=== PATIENT | female | born 2000 | race Caucasian/White ===

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

== ENCOUNTER 2019-04-13 22:49 | Emergency (ER) | payer OTHER ==
[~2019-04-13] VITALS: Ht 165.1 cm; Wt 60.0 kg
[2019-04-13 22:51] VITALS: BP 138/75
[2019-04-13] MEDS ORDERED: SERT25TA3 PO (23:13)
[2019-04-13] MEDS ORDERED: FLUO20CA19 PO (23:13)
--- NOTE | 2019-04-13 23:13 | NUR ---
PT RECENTLY TREATED FOR SINUS INFECTION AND TREATED WITH ABX, NOW C/O +COUGH AND SINUS PRESSURE LAST FEW DAYS. PT SITTING UP ON GURNEY, CALL LIGHT WITHIN REACH, AWAITING CXY
== END 2019-04-13 23:50 ==
LOC: ED 23:44
DX: J01.00 Acute maxillary sinusitis, unspecified (principal); B34.9 Viral infection, unspecified
CPT/HCPCS: 71046; 99283

== ENCOUNTER 2019-12-03 20:30 | Emergency (ER) | payer OTHER ==
[~2019-12-03] VITALS: Ht 165.1 cm; Wt 74.7 kg
[~2019-12-03 20:30] MED LIST: FLUO20CA19 PO; SERT25TA3 PO
--- NOTE | 2019-12-03 20:52 | NUR ---
TASK RN: FIRST CONTACT WITH PT. RESTING IN [facility], NAD NOTED. REPORTS LUQ/RUQ ABD "CRAMPING" X SEVERAL DAYS. CURRENTLY , APPROX 7 WEEKS LMP 10/12. . DENIES VAGINAL DC OR BLEEDING, N/V, DYSURIA. AMBULATED STEADILY TO BATHROOM TO PROVIDE UA. REPORT TO PRIMARY RNJACKELYN.
[2019-12-03 21:34] LABS: BASOPHILS # (AUTO) 0.03 x10^3/uL (0-0.3); BASOPHILS % (AUTO) 0 % (0-1); EOSINOPHILS # (AUTO) 0.07 x10^3/uL (0-0.8); EOSINOPHILS % (AUTO) 1 % (1-7); LYMPHOCYTES # (AUTO) 2.47 x10^3/uL (1-6.1); LYMPHOCYTES % (AUTO) 23 % (22-44); MD NO; MEAN CORPUSCULAR HEMOGLOBIN 28.6 pg (27.0-34.8); MEAN CORPUSCULAR HGB CONC 33.2 g/dL (32.4-35.8); MEAN CORPUSCULAR VOLUME 86.2 fL (80-100); MEAN PLATELET VOLUME 10.6 fL (7.4-10.4); MONOCYTES # (AUTO) 0.89 x10^3/uL (0-1.4); MONOCYTES % (AUTO) 8 % (2-9); NEUTROPHILS # (AUTO) 7.44 x10^3/uL (1.8-8.0); NEUTROPHILS % (AUTO) 68 % (42-75); PLATELET COUNT 213 x10^3/uL (130-400)
[2019-12-03 21:46] LABS: ALANINE AMINOTRANSFERASE 18 U/L (12-78); ALBUMIN 3.7 g/dL (3.4-5.0); ANION GAP 7 mmol/L (5-15); CALCIUM 9.3 mg/dL (8.5-10.1); CHLORIDE 107 mmol/L (98-107); CREATININE 0.72 mg/dL (0.55-1.02)
[2019-12-03 21:53] LABS: MICROSCOPIC NOT IND
[2019-12-03 22:04] LABS: ALKALINE PHOSPHATASE 65 U/L (45-117); BILIRUBIN,TOTAL 0.2 mg/dL (0.2-1.0); TOTAL PROTEIN 7.4 g/dL (6.4-8.2)
[2019-12-03 23:02] VITALS: BP 105/59
== END 2019-12-03 23:27 | disposition home or self-care (01) ==
LOC: ED 21:19
DX: O26.891 Other specified pregnancy related conditions, first trimester (principal); R10.11 Right upper quadrant pain; R10.32 Left lower quadrant pain; R11.0 Nausea; Z3A.01 Less than 8 weeks gestation of pregnancy
CPT/HCPCS: 36415; 76705; 76801; 80053; 81003; 84702; 85025; 99285

== ENCOUNTER 2020-03-11 22:16 | Outpatient (CLI) | payer OTHER ==
[~2020-03-11] VITALS: Ht 165.1 cm; Wt 80.9 kg
[2020-03-11 22:27] VITALS: BP 110/68
[2020-03-11 22:35] LABS: MICROSCOPIC NOT IND
== END 2020-03-11 23:00 | disposition home or self-care (01) ==
LOC: LDOP 22:16
PROVIDERS: ATTEND Obstetrics & Gynecology
DX: O36.8120 Decreased fetal movements, second trimester, not applicable or unspecified (principal); Z3A.21 21 weeks gestation of pregnancy
CPT/HCPCS: 81003; 87086; 99211; G0463

== ENCOUNTER 2020-04-12 17:30 | Outpatient (CLI) | payer OTHER ==
[~2020-04-12] VITALS: Ht 165.1 cm; Wt 98.0 kg
[2020-04-12 17:41] VITALS: BP 104/58
[2020-04-12] MEDS ORDERED: FLU VACC QS2020-21(6MOS UP)/PF 60MCG/0.5 ML SYR IM ONE (18:00)
[2020-04-12 18:38] LABS: MICROSCOPIC NOT IND
== END 2020-04-12 19:46 | disposition home or self-care (01) ==
LOC: LDOP 17:30
PROVIDERS: ATTEND Obstetrics & Gynecology
DX: O98.512 Other viral diseases complicating pregnancy, second trimester (principal); O26.892 Other specified pregnancy related conditions, second trimester; M54.9 Dorsalgia, unspecified; Z3A.26 26 weeks gestation of pregnancy
CPT/HCPCS: 81003; 87635; 99211; G0463

== ENCOUNTER 2020-06-01 10:49 | Outpatient (CLI) | payer OTHER ==
[~2020-06-01] VITALS: Ht 165.1 cm; Wt 91.4 kg
[2020-06-01 11:10] VITALS: BP 119/67
== END 2020-06-01 12:00 | disposition home or self-care (01) ==
LOC: LDOP 10:49
PROVIDERS: ATTEND Obstetrics & Gynecology
DX: O26.893 Other specified pregnancy related conditions, third trimester (principal); R42 Dizziness and giddiness; Z3A.33 33 weeks gestation of pregnancy
CPT/HCPCS: 59025

== ENCOUNTER 2020-06-04 18:03 | Outpatient (CLI) | payer OTHER ==
[2020-06-04 18:42] LABS: MICROSCOPIC NOT IND
[2020-06-04 18:54] LABS: CREATININE,URINE RANDOM 88.4 mg/dL
[2020-06-04] MEDS ORDERED: D5%-LACTATED RINGERS 1,000 ML IV SCH (19:00)
[2020-06-04] MEDS ORDERED: ONDANSETRON ODT 4 MG PO ONE (19:00)
[2020-06-04] MEDS ORDERED: PLEASE ENTER HEIGHT AND WEIGHT MC SCH (19:00)
[2020-06-04] MEDS ORDERED: BUTALB/APAP/CAFFEINE 50MG/325MG/40MG PO ONE (19:00)
[2020-06-04 19:15] LABS: ALANINE AMINOTRANSFERASE 24 U/L (12-78); ALBUMIN 2.8 g/dL (3.4-5.0); ANION GAP 2 mmol/L (5-15); CALCIUM 8.9 mg/dL (8.5-10.1); CHLORIDE 110 mmol/L (98-107); CREATININE 0.59 mg/dL (0.55-1.02)
[2020-06-04 19:17] LABS: ALKALINE PHOSPHATASE 124 U/L (45-117); BILIRUBIN,TOTAL 0.2 mg/dL (0.2-1.0); TOTAL PROTEIN 6.9 g/dL (6.4-8.2)
[2020-06-04 19:26] LABS: BASOPHILS % (AUTO) 0 % (0-1); EOSINOPHILS % (AUTO) 1 % (1-7); LYMPHOCYTES % (AUTO) 18 % (22-44); MEAN CORPUSCULAR HEMOGLOBIN 26.8 pg (27.0-34.8); MEAN CORPUSCULAR HGB CONC 33.7 g/dL (32.4-35.8); MEAN PLATELET VOLUME 9.9 fL (7.4-10.4); MONOCYTES % (AUTO) 10 % (2-9); NEUTROPHILS % (AUTO) 71 % (42-75); PLATELET COUNT 203 x10^3/uL (130-400); RED BLOOD COUNT 4.38 x10^6/uL (3.82-5.3); RED CELL DISTRIBUTION WIDTH 13.4 % (9.6-15.2)
[2020-06-04 19:27] LABS: MD NO
[2020-06-04] MEDS ORDERED: BUTALB/APAP/CAFFEINE 50MG/325MG/40MG ONE (19:33)
[2020-06-04] MEDS ORDERED: BUTA-177 PO (19:53)
== END 2020-06-04 20:58 | disposition home or self-care (01) ==
LOC: LDOP 18:03
PROVIDERS: ATTEND Obstetrics & Gynecology
DX: O26.893 Other specified pregnancy related conditions, third trimester (principal); R42 Dizziness and giddiness; R51.9 Headache, unspecified; R10.13 Epigastric pain; Z3A.33 33 weeks gestation of pregnancy
CPT/HCPCS: 36415; 59025; 80053; 81003; 82570; 83690; 84156; 84550; 85025; 87086; 96360; J7121; 96361

== ENCOUNTER 2020-07-16 13:59 | Inpatient (IN) | payer OTHER ==
[~2020-07-16] VITALS: Ht 165.1 cm; Wt 100.0 kg
[~2020-07-16 13:59] MED LIST changes: +BUTA-177 PO; +SERT-331 PO; -SERT25TA3 PO
[2020-07-16 22:51] VITALS: BP 122/64
[2020-07-16] MEDS ORDERED: NEWBORN KIT ONE (22:58)
[2020-07-16] MEDS ORDERED: D5%-LACTATED RINGERS 1,000 ML IV SCH (23:00)
[2020-07-16] MEDS ORDERED: FENTANYL PF 100 MCG/2ML IV PRN (23:00)
[2020-07-16] MEDS ORDERED: CALCIUM CARBONATE 500 MG TAB.CHEW PO PRN (23:00)
[2020-07-16] MEDS ORDERED: OXYTOCIN 30U/ 0.9% NaCL 500ML 500 ML IV ONE (23:00)
[2020-07-16] MEDS ORDERED: ONDANSETRON 2MG/ML, 2ML IVPush PRN (23:00)
[2020-07-16] MEDS ORDERED: TERBUTALINE 1 MG/ML, 1ML SQ PRN (23:00)
[2020-07-16] MEDS ORDERED: OXYTOCIN 30U/ 0.9% NaCL 500ML 500 ML IV PRN (23:00)
[2020-07-16] MEDS ORDERED: TERBUTALINE 1 MG/ML, 1ML IVPush PRN (23:00)
[2020-07-16] MEDS ORDERED: FENTANYL PF 100 MCG/2ML IVPush PRN (23:00)
[2020-07-16] MEDS ORDERED: MISOPROSTOL 25 MCG TABLET ONE (23:05)
[2020-07-16 23:12] LABS: BASOPHILS % (AUTO) 0 % (0-1); EOSINOPHILS % (AUTO) 1 % (1-7); LYMPHOCYTES % (AUTO) 17 % (22-44); MEAN CORPUSCULAR HEMOGLOBIN 25.5 pg (27.0-34.8); MEAN CORPUSCULAR HGB CONC 33.4 g/dL (32.4-35.8); MEAN PLATELET VOLUME 9.6 fL (7.4-10.4); MONOCYTES % (AUTO) 8 % (2-9); NEUTROPHILS % (AUTO) 74 % (42-75); PLATELET COUNT 169 x10^3/uL (130-400); RED CELL DISTRIBUTION WIDTH 14.8 % (9.6-15.2)
[2020-07-16 23:13] LABS: MD NO
[2020-07-16] MEDS: MISOPROSTOL 25 MCG TABLET VG PRN (23:14)
[2020-07-16 23:47] LABS: ALANINE AMINOTRANSFERASE 20 U/L (12-78); ALBUMIN 2.4 g/dL (3.4-5.0); ANION GAP 10 mmol/L (5-15); CALCIUM 8.6 mg/dL (8.5-10.1); CHLORIDE 110 mmol/L (98-107)
[2020-07-16 23:49] LABS: ALKALINE PHOSPHATASE 158 U/L (45-117); BILIRUBIN,TOTAL 0.2 mg/dL (0.2-1.0); CREATININE 0.58 mg/dL (0.55-1.02); TOTAL PROTEIN 6.2 g/dL (6.4-8.2)
[2020-07-16 23:52] LABS: BILIRUBIN, DIRECT < 0.1 mg/dL (0.1-0.2)
[2020-07-17 00:24] LABS: MICROSCOPIC INDICATED
[2020-07-17] MEDS ORDERED: MISOPROSTOL 25 MCG TABLET ONE ×3 (02:58→12:33)
[2020-07-17] MEDS: MISOPROSTOL 25 MCG TABLET VG PRN ×3 (03:29→12:38)
[2020-07-17 07:30] VITALS: BP 132/75
[2020-07-17] MEDS ORDERED: PREN1TAB60 PO (10:38)
[2020-07-17] MEDS ORDERED: ACET650S21 PO (10:39)
[2020-07-17] MEDS ORDERED: ACET325T14 PO (10:41)
[2020-07-17] MEDS ORDERED: ZOLPIDEM 5MG TABLET ONE (14:06)
[2020-07-17] MEDS ORDERED: ZOLPIDEM 5MG TABLET PO ONE (14:30)
[2020-07-17] MEDS ORDERED: OXYTOCIN 30U/ 0.9% NaCL 500ML 500 ML ONE (16:56)
[2020-07-17] MEDS: LACTATED RINGERS 1,000 ML IV SCH ×2 (19:20→22:11)
[2020-07-17] MEDS ORDERED: ONDANSETRON 2MG/ML, 2ML ONE (22:15)
[2020-07-17] MEDS ORDERED: BUPIVACAINE 0.25% ONE (22:23)
[2020-07-17] MEDS ORDERED: FENTANYL/BUPIV./NS/PF 250 ML EPIDCONT ONE (22:23)
[2020-07-17] MEDS ORDERED: NALOXONE 0.4 MG/ML, 1ML IVPush PRN (23:00)
[2020-07-17] MEDS ORDERED: ONDANSETRON 2MG/ML, 2ML IVPush PRN (23:00)
[2020-07-17] MEDS ORDERED: FENTANYL/BUPIV./NS/PF 250 ML EPIDCONT SCH (23:00)
[2020-07-17] MEDS ORDERED: EPHEDRINE 50 MG/ML, 1ML IVPush PRN (23:00)
[2020-07-17] MEDS ORDERED: LACTATED RINGERS 1,000 ML IVBOLUS PRN (23:00)
[2020-07-17] MEDS ORDERED: LACTATED RINGERS 1,000 ML IV SCH (23:00)
[2020-07-17] MEDS ORDERED: DIPHENHYDRAMINE 50 MG/ML, 1ML IVPush PRN (23:00)
[2020-07-18] MEDS ORDERED: LACTATED RINGERS 1,000 ML INTUTE PRN (02:30)
[2020-07-18] MEDS ORDERED: LACTATED RINGERS 1,000 ML INTUTE SCH (02:30)
[2020-07-18] MEDS: LACTATED RINGERS 1,000 ML IV SCH (03:13)
[2020-07-18] MEDS ORDERED: OXYTOCIN 30U/ 0.9% NaCL 500ML 500 ML ONE (08:16)
[2020-07-18] MEDS ORDERED: IBUPROFEN 600 MG TABLET ONE (08:25)
[2020-07-18] MEDS ORDERED: IBUPROFEN 200 MG TABLET PO PRN ×2 (08:30→09:00)
[2020-07-18 09:32] VITALS: BP 111/68
[2020-07-18] MEDS: OXYTOCIN 30U/ 0.9% NaCL 500ML 500 ML IV SCH (11:30)
[2020-07-18 12:00] VITALS: BP 143/79
[2020-07-18 14:37] LABS: BASOPHILS % (AUTO) 0 % (0-1); EOSINOPHILS % (AUTO) 1 % (1-7); LYMPHOCYTES % (AUTO) 12 % (22-44); MEAN CORPUSCULAR HEMOGLOBIN 25.4 pg (27.0-34.8); MEAN CORPUSCULAR HGB CONC 33.1 g/dL (32.4-35.8); MEAN PLATELET VOLUME 10.5 fL (7.4-10.4); MONOCYTES % (AUTO) 9 % (2-9); NEUTROPHILS % (AUTO) 79 % (42-75); PLATELET COUNT 132 x10^3/uL (130-400); RED BLOOD COUNT 3.99 x10^6/uL (3.82-5.3); RED CELL DISTRIBUTION WIDTH 14.9 % (9.6-15.2)
[2020-07-18] MEDS ORDERED: HYDROcodone/APAP 5/325 TABLET PO PRN ×2 (15:00)
[2020-07-18] MEDS ORDERED: OXYcodone IR 5MG TABLET PO PRN ×2 (15:00)
[2020-07-18] MEDS ORDERED: IBUPROFEN 800 MG TABLET PO PRN (15:00)
[2020-07-18] MEDS ORDERED: ACETAMINOPHEN 325 MG TABLET PO PRN ×2 (15:00)
[2020-07-18] MEDS ORDERED: SIMETHICONE 80 MG CHEW TAB PO PRN (15:00)
[2020-07-18] MEDS ORDERED: OXYcodone/APAP 5/325MG TABLET PO PRN (15:00)
[2020-07-18 15:01] LABS: MD SCAN
[2020-07-18] MEDS: IBUPROFEN 600 MG TABLET PO PRN ×2 (15:40→22:25)
[2020-07-18 15:53] VITALS: BP 132/82
[2020-07-18 19:15] VITALS: BP 112/74
[2020-07-18] MEDS: DOCUSATE 100 MG CAPSULE PO PRN (22:25)
[2020-07-19 00:03] VITALS: BP 97/63
[2020-07-19] MEDS: OXYcodone/APAP 5/325MG TABLET PO PRN ×3 (00:33→15:07)
[2020-07-19] MEDS: OXYTOCIN 30U/ 0.9% NaCL 500ML 500 ML IV SCH ×2 (01:00→11:54)
[2020-07-19 04:09] VITALS: BP 109/76
[2020-07-19] MEDS: IBUPROFEN 600 MG TABLET PO PRN ×2 (05:31→11:54)
[2020-07-19 06:58] VITALS: BP 113/75
[2020-07-19] MEDS ORDERED: PRENATAL VIT/IRON/FA 1 EACH TABLET PO SCH (09:00)
[2020-07-19] MEDS: DOCUSATE 100 MG CAPSULE PO PRN (09:06)
[2020-07-19] MEDS ORDERED: IBUP-1222 PO (10:38)
== END 2020-07-19 16:04 | disposition home or self-care (01) | DRG 807 ==
LOC: LDIP 22:17 → 2NW 07-18 09:18
PROVIDERS: ADMIT Obstetrics & Gynecology; ATTEND Obstetrics & Gynecology
PROC: 10E0XZZ Delivery of Products of Conception, External Approach (ICD-10-PCS; principal; 2020-07-18)
PROC: 0UQMXZZ Repair Vulva, External Approach (ICD-10-PCS; 2020-07-18)
PROC: 3E0P7VZ Introduction of Hormone into Female Reproductive, Via Natural or Artificial Opening (ICD-10-PCS; 2020-07-18)
PROC: 3E0R3BZ Introduction of Anesthetic Agent into Spinal Canal, Percutaneous Approach (ICD-10-PCS; 2020-07-18)
PROC: 00HU33Z Insertion of Infusion Device into Spinal Canal, Percutaneous Approach (ICD-10-PCS; 2020-07-18)
DX: O13.4 Gestational [pregnancy-induced] hypertension without significant proteinuria, complicating childbirth (principal); Z37.0 Single live birth; Z3A.39 39 weeks gestation of pregnancy; O70.0 First degree perineal laceration during delivery; Z20.822 Contact with and (suspected) exposure to COVID-19
CPT/HCPCS: 36415; 80053; 81001; 82248; 82570; 84156; 84550; 85025; 86592; 86900; 87635; G0378; J2405; J2590; J7120

== ENCOUNTER 2021-01-14 00:39 | Emergency (ER) | payer OTHER ==
[~2021-01-14] VITALS: Ht 165.1 cm; Wt 93.1 kg
[~2021-01-14 00:39] MED LIST changes: +ACET325T14 PO; +ACET650S21 PO; +IBUP-1222 PO; +PREN1TAB60 PO
--- NOTE | 2021-01-14 00:57 | NUR ---
pt c/o of periumbilical and epigastric pain since 4 days go pt reports always being hungry then eating and feeling better. denies cp, sob, and dizziness. attached to monitors. vss. palacios. friend at bedside. vbed inlow, rails engaged, call light on lap
[2021-01-14 01:13] LABS: BASOPHILS % (AUTO) 0 % (0-1); EOSINOPHILS % (AUTO) 2 % (1-7); LYMPHOCYTES % (AUTO) 20 % (22-44); MEAN CORPUSCULAR HEMOGLOBIN 26.5 pg (27.0-34.8); MEAN CORPUSCULAR HGB CONC 33.9 g/dL (32.4-35.8); MEAN PLATELET VOLUME 9.9 fL (7.4-10.4); MONOCYTES % (AUTO) 12 % (2-9); NEUTROPHILS % (AUTO) 66 % (42-75); PLATELET COUNT 269 x10^3/uL (130-400); RED BLOOD COUNT 5.27 x10^6/uL (3.82-5.3); RED CELL DISTRIBUTION WIDTH 15.1 % (9.6-15.2)
[2021-01-14] MEDS ORDERED: MAALOX/HYOSCYAMINE/LIDOCAINE 45 ML BTL ONE (01:16)
[2021-01-14 01:25] LABS: ALANINE AMINOTRANSFERASE 21 U/L (12-78); ALBUMIN 3.6 g/dL (3.4-5.0); ANION GAP 6 mmol/L (5-15); CHLORIDE 107 mmol/L (98-107); CREATININE 0.75 mg/dL (0.55-1.02)
--- NOTE | 2021-01-14 01:25 | NUR ---
us at bedside.
[2021-01-14 01:29] LABS: ALKALINE PHOSPHATASE 119 U/L (45-117); BILIRUBIN,TOTAL 0.3 mg/dL (0.2-1.0); TOTAL PROTEIN 7.8 g/dL (6.4-8.2)
[2021-01-14] MEDS ORDERED: MAALOX/HYOSCYAMINE/LIDOCAINE 45 ML BTL PO ONE (01:30)
[2021-01-14 01:51] VITALS: BP 118/67
[2021-01-14 01:54] LABS: MICROSCOPIC AUTO
--- NOTE | 2021-01-14 02:17 | NUR ---
GAVE REPORT TO CHRYSTAL LOBO
--- NOTE | 2021-01-14 03:32 | NUR ---
PT A&OX4, AND F/U AND D/C INSTRUCTIONS WITH PRESCRIPTIONS GIVEN TO PT AND SHE V/U. PT AMBULATED TO THE DISCHARGE DESK.
== END 2021-01-14 03:36 | disposition home or self-care (01) ==
LOC: ED 03:34
DX: K29.00 Acute gastritis without bleeding (principal)
CPT/HCPCS: 36415; 76700; 80053; 81001; 83690; 84703; 85025; 87086; 99284